=== PATIENT | female | born 1985 | race Caucasian/White ===

== ENCOUNTER 2021-05-06 22:04 | Emergency (ER) | payer OTHER ==
[~2021-05-06] VITALS: Ht 160 cm; Wt 56.8 kg
[2021-05-06] MEDS ORDERED: SUBOXONE (22:09)
[2021-05-07] MEDS ORDERED: MECLIZINE 25 MG TABLET PO ONE (04:55)
[2021-05-07 05:08] VITALS: BP 102/56
== END 2021-05-07 05:11 | disposition home or self-care (01) ==
LOC: M ED 22:04 → EDBD 22:04 → M ED 05-07 05:11
DX: F41.8 Other specified anxiety disorders (principal); F19.11 Other psychoactive substance abuse, in remission

== ENCOUNTER 2021-07-01 01:14 | Emergency (ER) | payer OTHER ==
[~2021-07-01] VITALS: Ht 162.6 cm; Wt 59.1 kg
[~2021-07-01 01:14] MED LIST: SUBOXONE
[2021-07-01 01:20] VITALS: BP 115/79
[2021-07-01] MEDS ORDERED: QUET1TAB17 (01:24)
[2021-07-01] MEDS ORDERED: HYDR-3363 (01:24)
[2021-07-01] MEDS ORDERED: OXCA150T21 (01:24)
== END 2021-07-01 15:09 | disposition left against medical advice (07) ==
LOC: M ED 01:14
DX: Z53.21 Procedure and treatment not carried out due to patient leaving prior to being seen by health care provider (principal)